=== PATIENT | male | born 1985 | race Caucasian/White ===

== ENCOUNTER 2020-09-02 20:08 | Emergency (ER) | payer OTHER ==
[2020-09-02 21:43] LABS: HEMOGLOBIN 15.5 gm/dl (14.0-17.5); RED BLOOD COUNT 4.89 M/UL (4.20-5.50); WHITE BLOOD COUNT 5.4 K/UL (4.5-11.0)
[2020-09-02 22:04] LABS: BUN/CREATININE RATIO 16 (0-10)
[2020-09-02] MEDS ORDERED: DEPAKOTE 250 M250 MG PO (22:49)
[2020-09-02] MEDS ORDERED: ONDANSETRON ODT4 MG SL (22:49)
[2020-09-02] MEDS ORDERED: IMITREX50 MG PO (22:49)
== END 2020-09-02 23:09 | disposition home or self-care (01) ==
LOC: ER1 20:08
PROVIDERS: Physician Assistant
DX: G43.909 Migraine, unspecified, not intractable, without status migrainosus (principal); G40.909 Epilepsy, unspecified, not intractable, without status epilepticus; F17.200 Nicotine dependence, unspecified, uncomplicated; Z79.899 Other long term (current) drug therapy
CPT/HCPCS: 80053; 85025; 96374; 96375; 99283; J0500; J1200; J1885; J2765

== ENCOUNTER 2020-11-03 23:08 | Emergency (ER) | payer OTHER ==
[~2020-11-03 23:08] MED LIST: DEPAKOTE 250 M250 MG PO; IMITREX50 MG PO; ONDANSETRON ODT4 MG SL
[2020-11-04 00:03] LABS: HEMOGLOBIN 15.7 gm/dl (14.0-17.5); RED BLOOD COUNT 4.86 M/UL (4.20-5.50); WHITE BLOOD COUNT 5.9 K/UL (4.5-11.0)
[2020-11-04 00:23] LABS: BUN/CREATININE RATIO 17 (0-10)
[2020-11-04] MEDS ORDERED: BENTYL 20MG TAB20 MG PO (02:37)
[2020-11-04] MEDS ORDERED: ZOFRAN ODT 4 MG4 MG PO (02:37)
== END 2020-11-04 02:50 | disposition home or self-care (01) ==
LOC: ER1 23:08
PROVIDERS: Emergency Medicine
DX: R10.11 Right upper quadrant pain (principal); R10.31 Right lower quadrant pain; R11.2 Nausea with vomiting, unspecified; F17.210 Nicotine dependence, cigarettes, uncomplicated; Z90.89 Acquired absence of other organs
CPT/HCPCS: 80053; 83690; 85025; 96374; 96375; 99284; J1885; J2405; Q9967

== ENCOUNTER 2020-11-27 01:26 | Emergency (ER) | payer OTHER ==
[~2020-11-27 01:26] MED LIST changes: +BENTYL 20MG TAB20 MG PO; +ZOFRAN ODT 4 MG4 MG PO
[2020-11-27 02:12] LABS: HEMOGLOBIN 16.5 gm/dl (14.0-17.5); RED BLOOD COUNT 5.14 M/UL (4.20-5.50); WHITE BLOOD COUNT 7.6 K/UL (4.5-11.0)
[2020-11-27 02:41] LABS: BUN/CREATININE RATIO 22 (0-10)
[2020-11-27] MEDS ORDERED: ZOFRAN ODT 4 MG4 MG PO (03:22)
[2020-11-27] MEDS ORDERED: OMEPRAZOLE40 MG PO (03:22)
== END 2020-11-27 04:00 | disposition home or self-care (01) ==
LOC: ER1 01:26
PROVIDERS: Family Medicine
DX: N20.0 Calculus of kidney (principal); F17.200 Nicotine dependence, unspecified, uncomplicated
CPT/HCPCS: 74019; 80053; 83690; 85025; 96365; 96375; 99284; C9113; J2270; J2405; J2550

== ENCOUNTER 2020-12-17 21:54 | Emergency (ER) | payer OTHER ==
[~2020-12-17 21:54] MED LIST changes: +OMEPRAZOLE40 MG PO
== END 2020-12-17 22:35 | disposition home or self-care (01) ==
LOC: ER1 21:54
DX: U07.1 COVID-19 (principal); J02.9 Acute pharyngitis, unspecified; F17.210 Nicotine dependence, cigarettes, uncomplicated
CPT/HCPCS: 99283; U0003

== ENCOUNTER 2021-03-26 20:47 | Emergency (ER) | payer OTHER ==
[2021-03-26 22:43] LABS: HEMOGLOBIN 15.8 gm/dl (14.0-17.5); RED BLOOD COUNT 5.12 M/UL (4.20-5.50); WHITE BLOOD COUNT 4.4 K/UL (4.5-11.0)
[2021-03-26 23:04] LABS: BUN/CREATININE RATIO 29 (0-10)
== END 2021-03-27 03:35 | disposition home or self-care (01) ==
LOC: ER1 20:47
PROVIDERS: Physician Assistant
DX: U07.1 COVID-19 (principal); R19.7 Diarrhea, unspecified; R11.2 Nausea with vomiting, unspecified; F17.210 Nicotine dependence, cigarettes, uncomplicated
CPT/HCPCS: 0240U; 80053; 85025; 99284

== ENCOUNTER 2021-10-12 01:55 | Emergency (ER) | payer OTHER ==
[2021-10-12 02:21] LABS: HEMOGLOBIN 16.1 gm/dl (14.0-17.5); RED BLOOD COUNT 5.01 M/UL (4.20-5.50); WHITE BLOOD COUNT 7.6 K/UL (4.5-11.0)
[2021-10-12 02:43] LABS: BUN/CREATININE RATIO 15 (0-10)
[2021-10-12] MEDS ORDERED: DEPAKOTE ER500 MG PO (04:56)
== END 2021-10-12 06:20 | disposition home or self-care (01) ==
LOC: ER1 01:55
PROVIDERS: Student in an Organized Health Care Education/Training Program
DX: G40.909 Epilepsy, unspecified, not intractable, without status epilepticus (principal); F17.210 Nicotine dependence, cigarettes, uncomplicated
CPT/HCPCS: 70450; 71045; 80053; 81001; 85025; 93005; 96374; 99284; G0480

== ENCOUNTER 2021-10-23 21:31 | Emergency (ER) | payer OTHER ==
[~2021-10-23 21:31] MED LIST changes: +DEPAKOTE ER500 MG PO
[2021-10-23 21:56] LABS: HEMOGLOBIN 15.8 gm/dl (14.0-17.5); RED BLOOD COUNT 4.96 M/UL (4.20-5.50); WHITE BLOOD COUNT 9.9 K/UL (4.5-11.0)
[2021-10-23 22:43] LABS: BUN/CREATININE RATIO 17 (0-10)
[2021-10-24] MEDS ORDERED: KEPPRA500 MG PO (01:09)
== END 2021-10-24 02:46 | disposition home or self-care (01) ==
LOC: ER1 21:31
PROVIDERS: Physician Assistant Medical
DX: R10.11 Right upper quadrant pain (principal); R56.9 Unspecified convulsions; F17.210 Nicotine dependence, cigarettes, uncomplicated; Z86.19 Personal history of other infectious and parasitic diseases; Z79.899 Other long term (current) drug therapy; Z20.822 Contact with and (suspected) exposure to COVID-19
CPT/HCPCS: 80053; 81001; 83605; 83690; 85025; 96374; 99284; G0480; J1953; Q9967; U0002

== ENCOUNTER → 2021-11-01 | Outpatient (CLI) | payer BC, OTHER ==
[~2021-11-01] MED LIST changes: +KEPPRA500 MG PO
== END ==
LOC: KOH-I 08:55
DX: R56.9 Unspecified convulsions (principal)
CPT/HCPCS: 70551